=== PATIENT | female | born 1965 | race Asian ===

== ENCOUNTER 2018-06-28 02:23 | Inpatient (IN) | payer BC, OTHER ==
[~2018-06-28] VITALS: Ht 154.9 cm; Wt 71.7 kg
[2018-06-28 02:28] VITALS: BP_SYST 164
[2018-06-28] MEDS ORDERED: NACL 0.9% 1,000 ML IV ONE (02:34)
[2018-06-28] MEDS ORDERED: ONDANSETRON HCL 4 MG/2 ML VIAL IVP ONE (02:45)
[2018-06-28] MEDS ORDERED: MORPHINE 4 MG/ML INJ. SYRINGE IVP ONE ×2 (02:45→04:00)
[2018-06-28 03:17] LABS: BASOPHILS % (AUTO) 0.3 % (0.0-2.0); EOSINOPHILS % (AUTO) 0.1 % (0.0-4.0); HEMATOCRIT 49.8 % (36-48); HEMOGLOBIN 17.5 g/dL (12.0-16.0); LYMPHOCYTES # (AUTO) 0.6 K/uL (1.0-5.5); LYMPHOCYTES % (AUTO) 5.6 % (20.5-51.5); MEAN CORPUSCULAR HEMOGLOBIN 32 pg (27-31); MEAN CORPUSCULAR HGB CONC 35 % (32-36); MEAN CORPUSCULAR VOLUME 90 fL (79.0-98.0); MONOCYTES # (AUTO) 0.4 K/uL (0.0-1.0); MONOCYTES % (AUTO) 3.5 % (1.7-9.3); NEUTROPHILS # (AUTO) 9.3 K/uL (1.8-7.7); NEUTROPHILS % (AUTO) 90.5 % (40.0-70.0); PLATELET COUNT (AUTO) 265 K/uL (130-430); RED BLOOD CELL COUNT(AUTO) 5.54 MIL/uL (4.2-6.2); RED CELL DISTRIBUTION WIDTH 11.9 % (9.0-15.0); WHITE BLOOD COUNT (AUTO) 10.3 K/uL (4.8-10.8)
[2018-06-28 03:27] LABS: CALCIUM 9.2 mg/dL (8.4-11.0); CREATININE 0.97 mg/dL (0.55-1.30)
[2018-06-28 03:28] LABS: BILIRUBIN,URINE 1+ (NEGATIVE); BLOOD, URINE NEGATIVE (NEGATIVE); CLARITY/URINE HAZY (CLEAR); COLOR,URINE AMBER (YELLOW); GLUCOSE,URINE NEGATIVE (NEGATIVE); KETONES,URINE 3+ (NEGATIVE); LEUKOCYTE ESTERASE ,URINE NEGATIVE (NEGATIVE); NITRITE, URINE NEGATIVE (NEGATIVE); PH,URINE 7.5 (5.0-8.0); PROTEIN URINE 1+ (NEGATIVE)
[2018-06-28 03:33] LABS: ALBUMIN 4.1 g/dL (3.4-4.8)
[2018-06-28 03:46] LABS: PROTHROMBIN TIME 10.2 SECS (9.5-12.5)
[2018-06-28] MEDS ORDERED: LOSA50TA3 PO (04:15)
[2018-06-28] MEDS ORDERED: MONT10TA22 (04:15)
[2018-06-28] MEDS ORDERED: HYDROmorphone 1 MG INJ. 1 MG/ML AMPUL IVP ONE (04:30)
[2018-06-28 05:12] LABS: BACTERIA,URINE FEW /HPF (None Seen); MUCUS,URINE 1+ /LPF (None Seen); RBC,URINE 0-3 /HPF (0-3); WBC,URINE 0-3 /HPF (0-3)
[2018-06-28] MEDS: HYDROmorphone 1 MG INJ. 1 MG/ML AMPUL IVP PRN ×8 (06:34→23:23)
[2018-06-28 08:06] VITALS: BP_SYST 170
[2018-06-28] MEDS ORDERED: hydrALAZINE HCL 20 MG/ML VIAL IVP PRN (09:45)
[2018-06-28] MEDS ORDERED: PANTOPRAZOLE SODIUM 40 MG/VIAL (PROTONIX) IVP ONE (10:45)
[2018-06-28] MEDS: 0.45% NACL 1,000 ML IV SCH ×3 (11:13→23:28)
[2018-06-28 12:14] VITALS: BP_SYST 162
[2018-06-28] MEDS: LABETALOL 100 MG/ 20ML VIAL IVP PRN (15:07)
[2018-06-28 16:02] VITALS: BP_SYST 141
[2018-06-28 19:05] VITALS: BP_SYST 150
[2018-06-28 19:10] VITALS: BP_SYST 151
[2018-06-29] VITALS (10 sets, daily range): BP systolic 122–155
[2018-06-29] MEDS: HYDROmorphone 1 MG INJ. 1 MG/ML AMPUL IVP PRN ×8 (02:47→22:52)
[2018-06-29] MEDS: 0.45% NACL 1,000 ML IV SCH (05:51)
[2018-06-29] MEDS: LABETALOL 100 MG/ 20ML VIAL IVP PRN ×2 (05:52→19:54)
[2018-06-29 07:09] LABS: ALBUMIN 2.9 g/dL (3.4-4.8); CALCIUM 7.9 mg/dL (8.4-11.0); CREATININE 0.74 mg/dL (0.55-1.30); PHOSPHORUS 2.2 mg/dL (2.7-4.5); POTASSIUM 3.6 mmol/L (3.5-5.1); TOTAL BILIRUBIN 2.4 mg/dL (0.0-1.0)
[2018-06-29 07:39] LABS: BASOPHILS % (AUTO) 0.1 % (0.0-2.0); EOSINOPHILS # (AUTO) 0.1 K/uL (0.0-0.4); EOSINOPHILS % (AUTO) 0.4 % (0.0-4.0); HEMOGLOBIN 14.2 g/dL (12.0-16.0); LYMPHOCYTES # (AUTO) 0.9 K/uL (1.0-5.5); LYMPHOCYTES % (AUTO) 5.8 % (20.5-51.5); MEAN CORPUSCULAR HEMOGLOBIN 31 pg (27-31); MEAN CORPUSCULAR HGB CONC 35 % (32-36); MEAN CORPUSCULAR VOLUME 90 fL (79.0-98.0); MONOCYTES # (AUTO) 1.1 K/uL (0.0-1.0); MONOCYTES % (AUTO) 7.3 % (1.7-9.3); NEUTROPHILS # (AUTO) 12.9 K/uL (1.8-7.7); NEUTROPHILS % (AUTO) 86.4 % (40.0-70.0); PLATELET COUNT (AUTO) 197 K/uL (130-430); RED BLOOD CELL COUNT(AUTO) 4.56 MIL/uL (4.2-6.2); RED CELL DISTRIBUTION WIDTH 12.6 % (9.0-15.0)
[2018-06-29] MEDS: PANTOPRAZOLE SODIUM 40 MG/VIAL (PROTONIX) IVP SCH (07:43)
[2018-06-29] MEDS: D5LR 1,000 ML IV SCH ×3 (09:59→19:54)
[2018-06-30] VITALS (7 sets, daily range): BP systolic 122–159
[2018-06-30] MEDS: HYDROmorphone 1 MG INJ. 1 MG/ML AMPUL IVP PRN ×9 (01:30→22:24)
[2018-06-30] MEDS: LABETALOL 100 MG/ 20ML VIAL IVP PRN ×2 (01:30→17:46)
[2018-06-30] MEDS: D5LR 1,000 ML IV SCH ×5 (01:35→20:51)
[2018-06-30 07:27] LABS: BASOPHILS % (AUTO) 0.3 % (0.0-2.0); EOSINOPHILS # (AUTO) 0.1 K/uL (0.0-0.4); EOSINOPHILS % (AUTO) 0.7 % (0.0-4.0); HEMATOCRIT 36.3 % (36-48); HEMOGLOBIN 12.9 g/dL (12.0-16.0); LYMPHOCYTES # (AUTO) 0.7 K/uL (1.0-5.5); LYMPHOCYTES % (AUTO) 5.7 % (20.5-51.5); MEAN CORPUSCULAR HEMOGLOBIN 32 pg (27-31); MEAN CORPUSCULAR HGB CONC 36 % (32-36); MEAN CORPUSCULAR VOLUME 89 fL (79.0-98.0); MONOCYTES % (AUTO) 8.4 % (1.7-9.3); NEUTROPHILS # (AUTO) 10.6 K/uL (1.8-7.7); NEUTROPHILS % (AUTO) 84.9 % (40.0-70.0); PLATELET COUNT (AUTO) 158 K/uL (130-430); RED BLOOD CELL COUNT(AUTO) 4.08 MIL/uL (4.2-6.2); RED CELL DISTRIBUTION WIDTH 12.3 % (9.0-15.0); WHITE BLOOD COUNT (AUTO) 12.4 K/uL (4.8-10.8)
[2018-06-30 07:29] LABS: CREATININE 0.78 mg/dL (0.55-1.30); POTASSIUM 3.3 mmol/L (3.5-5.1)
[2018-06-30] MEDS ORDERED: SIMETHICONE 80 MG TAB.CHEW PO PRN (08:00)
[2018-06-30] MEDS: PANTOPRAZOLE SODIUM 40 MG/VIAL (PROTONIX) IVP SCH (09:04)
[2018-06-30] MEDS: IPRATROPIUM BROM 0.5 MG/2.5 ML VIAL.NEB (ATROVENT) INH SCH ×4 (09:15→19:00)
[2018-06-30] MEDS: ALBUTEROL SULFATE 0.083% 2.5 MG/3 ML VIAL.NEB INH SCH ×4 (09:15→19:00)
[2018-06-30] MEDS ORDERED: ALBUTEROL SULFATE 0.083% 2.5 MG/3 ML VIAL.NEB INH PRN (09:15)
[2018-06-30] MEDS ORDERED: IPRATROPIUM BROM 0.5 MG/2.5 ML VIAL.NEB (ATROVENT) INH PRN (09:15)
[2018-07-01] VITALS (8 sets, daily range): BP systolic 141–175
[2018-07-01] MEDS: HYDROmorphone 1 MG INJ. 1 MG/ML AMPUL IVP PRN ×10 (00:31→22:31)
[2018-07-01] MEDS: D5LR 1,000 ML IV SCH ×3 (01:55→14:49)
[2018-07-01] MEDS: ALBUTEROL SULFATE 0.083% 2.5 MG/3 ML VIAL.NEB INH SCH ×5 (07:17→23:30)
[2018-07-01] MEDS: IPRATROPIUM BROM 0.5 MG/2.5 ML VIAL.NEB (ATROVENT) INH SCH ×5 (07:17→23:30)
[2018-07-01] MEDS: PANTOPRAZOLE SODIUM 40 MG/VIAL (PROTONIX) IVP SCH (08:42)
[2018-07-01] MEDS ORDERED: LOSARTAN POTASSIUM 50 MG TABLET (COZAAR) PO ONE (20:00)
[2018-07-02] MEDS: HYDROmorphone 1 MG INJ. 1 MG/ML AMPUL IVP PRN ×3 (00:56→06:35)
[2018-07-02] MEDS: D5LR 1,000 ML IV SCH ×3 (02:28→22:57)
[2018-07-02] MEDS: ALBUTEROL SULFATE 0.083% 2.5 MG/3 ML VIAL.NEB INH SCH ×6 (03:00→23:00)
[2018-07-02] MEDS: IPRATROPIUM BROM 0.5 MG/2.5 ML VIAL.NEB (ATROVENT) INH SCH ×6 (03:00→23:00)
[2018-07-02 08:00] VITALS: BP_SYST 150
[2018-07-02] MEDS: LOSARTAN POTASSIUM 50 MG TABLET (COZAAR) PO SCH (08:43)
[2018-07-02] MEDS: PANTOPRAZOLE SODIUM 40 MG/VIAL (PROTONIX) IVP SCH (08:43)
[2018-07-02] MEDS ORDERED: MORPHINE 2 MG/ML INJ. SYRINGE IVP PRN (09:15)
[2018-07-02] MEDS: cloNIDine HCL 0.1 MG TABLET PO PRN (10:51)
[2018-07-02] MEDS: MORPHINE 4 MG/ML INJ. SYRINGE IVP PRN ×3 (10:56→22:56)
[2018-07-02 11:47] LABS: BASOPHILS % (AUTO) 0.2 % (0.0-2.0); EOSINOPHILS # (AUTO) 0.3 K/uL (0.0-0.4); EOSINOPHILS % (AUTO) 2.6 % (0.0-4.0); HEMATOCRIT 38.2 % (36-48); HEMOGLOBIN 13.1 g/dL (12.0-16.0); LYMPHOCYTES # (AUTO) 0.9 K/uL (1.0-5.5); LYMPHOCYTES % (AUTO) 6.9 % (20.5-51.5); MEAN CORPUSCULAR HEMOGLOBIN 31 pg (27-31); MEAN CORPUSCULAR HGB CONC 34 % (32-36); MEAN CORPUSCULAR VOLUME 90 fL (79.0-98.0); MONOCYTES # (AUTO) 1.2 K/uL (0.0-1.0); MONOCYTES % (AUTO) 9.3 % (1.7-9.3); NEUTROPHILS # (AUTO) 10.1 K/uL (1.8-7.7); PLATELET COUNT (AUTO) 212 K/uL (130-430); RED BLOOD CELL COUNT(AUTO) 4.26 MIL/uL (4.2-6.2); RED CELL DISTRIBUTION WIDTH 12.2 % (9.0-15.0); WHITE BLOOD COUNT (AUTO) 12.5 K/uL (4.8-10.8)
[2018-07-02 11:49] LABS: CALCIUM 8.9 mg/dL (8.4-11.0); CREATININE 0.71 mg/dL (0.55-1.30); POTASSIUM 3.5 mmol/L (3.5-5.1)
[2018-07-02 11:56] LABS: ALBUMIN 2.7 g/dL (3.4-4.8); TOTAL BILIRUBIN 2.5 mg/dL (0.0-1.0)
[2018-07-02 12:55] VITALS: BP_SYST 149
[2018-07-02] MEDS: LABETALOL 100 MG/ 20ML VIAL IVP PRN (16:24)
[2018-07-02 17:02] VITALS: BP_SYST 160
[2018-07-02 18:05] VITALS: BP_SYST 148
[2018-07-02 20:00] VITALS: BP_SYST 146
[2018-07-03 00:28] VITALS: BP_SYST 146
[2018-07-03] MEDS: MORPHINE 4 MG/ML INJ. SYRINGE IVP PRN ×6 (03:38→23:51)
[2018-07-03] MEDS: ALBUTEROL SULFATE 0.083% 2.5 MG/3 ML VIAL.NEB INH SCH ×3 (07:00→15:00)
[2018-07-03] MEDS: IPRATROPIUM BROM 0.5 MG/2.5 ML VIAL.NEB (ATROVENT) INH SCH ×3 (07:00→15:00)
[2018-07-03 08:00] VITALS: BP_SYST 154
[2018-07-03 08:30] VITALS: BP_SYST 154
[2018-07-03] MEDS: D5LR 1,000 ML IV SCH ×2 (09:24→17:07)
[2018-07-03] MEDS: PANTOPRAZOLE SODIUM 40 MG/VIAL (PROTONIX) IVP SCH (09:24)
[2018-07-03] MEDS: LOSARTAN POTASSIUM 50 MG TABLET (COZAAR) PO SCH (09:25)
[2018-07-03 12:00] VITALS: BP_SYST 149
[2018-07-03 16:00] VITALS: BP_SYST 162
[2018-07-03] MEDS: cloNIDine HCL 0.1 MG TABLET PO PRN (17:10)
[2018-07-03 20:00] VITALS: BP_SYST 149
[2018-07-04 00:38] VITALS: BP_SYST 152
[2018-07-04] MEDS: MORPHINE 4 MG/ML INJ. SYRINGE IVP PRN ×4 (03:50→16:45)
[2018-07-04] MEDS: D5LR 1,000 ML IV SCH ×2 (03:50→12:08)
[2018-07-04 08:10] VITALS: BP_SYST 148
[2018-07-04] MEDS: LOSARTAN POTASSIUM 50 MG TABLET (COZAAR) PO SCH (08:13)
[2018-07-04] MEDS: PANTOPRAZOLE SODIUM 40 MG/VIAL (PROTONIX) IVP SCH (08:13)
[2018-07-04] MEDS ORDERED: DIATR MEGLU/DIATRIZ SOD 30 ML SOLUTION PO ONE (09:29)
[2018-07-04] MEDS: cloNIDine HCL 0.1 MG TABLET PO PRN (12:09)
[2018-07-04 12:15] VITALS: BP_SYST 165
[2018-07-04 16:19] VITALS: BP_SYST 143
[2018-07-04 16:59] VITALS: BP_SYST 143
== END 2018-07-04 18:26 | disposition home or self-care (01) | DRG 862 ==
LOC: SED 02:23 → STU 04:40 → SMU 07-02 11:27
PROVIDERS: ADMIT Internal Medicine; ATTEND Internal Medicine
DX: T81.4XXA Infection following a procedure, initial encounter (principal); K85.90 Acute pancreatitis without necrosis or infection, unspecified; Y83.8 Other surgical procedures as the cause of abnormal reaction of the patient, or of later complication, without mention of misadventure at the time of the procedure; I10 Essential (primary) hypertension; D72.829 Elevated white blood cell count, unspecified; E11.9 Type 2 diabetes mellitus without complications; J45.909 Unspecified asthma, uncomplicated; Z83.3 Family history of diabetes mellitus; Y92.89 Other specified places as the place of occurrence of the external cause; Z79.899 Other long term (current) drug therapy; Z88.8 Allergy status to other drugs, medicaments and biological substances
CPT/HCPCS: 36415; 71045; 80048; 80053; 81000-TC; 82150-TC; 82550-TC; 83690-TC; 83735-TC; 84100-TC; 84484; 85025; 85610-TC; 85730-TC; 93005; 94640; 94760; 96374; 96375; 96376; 99285; C9113; J1170; J2270; J2405; J3490; J7030; J7120; J7613; Q9964